=== PATIENT | male | born 2000 | race Caucasian/White ===

== ENCOUNTER 2023-01-18 02:36 | Emergency (ER) | payer OTHER, SELFPAY ==
[2023-01-18] VITALS (13 sets, daily range): BP systolic 102–165; BP diastolic 48–101; PULSE 72–143; RESP 10–23; TEMP 36.9; O2SAT 97–100
--- NOTE | 2023-01-18 02:59 | ECG_ITS ---
Measurements Intervals [place] Rate: 144 P: 66 MT: 135 QRS: 80 QRSD: 98 T: 21 QT: 289 QTc: 449 Interpretive Statements SINUS TACHYCARDIA, NONSPECIFIC ST & T-WAVE ABNORMALITY ABNORMAL RHYTHM ECG NO PREVIOUS ECG AVAILABLE FOR COMPARISON Electronically Signed On 01-19-2023 7:57:23 [employer] by Chi Moreira M.D.
[2023-01-18] MEDS: SODIUM CHLORIDE 0.9% IV 1,000 ML 999 ML IV CONT (03:11)
[2023-01-18] MEDS: LORazepam INJ (*CRX) 2 MG/ML VIAL 1 MG IV PUSH (03:16)
[2023-01-18 03:19] LABS: Basophils Percent Auto 0.4 % (0.2-1.2); Eosinophils Absolute Auto 0.1 K/mm3 (0-0.3); Eosinophils Percent Auto 1.4 % (0-4.4); Hematocrit 49.9 % (42.0-52.0); Hemoglobin 17.1 g/dL (14.0-18.0); Immature Granulocyte Absolute 0.02 K/mm3 (0.00-0.031); Immature Granulocyte Percent A 0.2 % (0-0.5); Lymphocytes Absolute Auto 2.53 K/mm3 (0.9-3.2); Mean Corpuscular HGB Conc 34.3 g/dl (32-36); Mean Corpuscular Hemoglobin 30.1 pg (26-34); Mean Corpuscular Volume 87.7 fl (80-100); Mean Platelet Volume 8.3 fl (7.4-10.4); Monocytes Absolute Auto 0.7 K/mm3 (0.1-0.6); Monocytes Percent Auto 7.5 % (2.6-8.5); Neutrophils Absolute Auto 5.6 K/mm3 (1.3-6.7); Neutrophils Percent Auto 62.5 % (45.5-73.1); Platelet Count Result 293 k/mm3 (150-375); Red Blood Count 5.69 M/mm3 (4.6-6.20); Red Cell Distribution Width 12.7 % (11.5-14.5)
[2023-01-18 03:29] LABS: Lactic Acid Reflex 0.6 mmol/L (0.7-2.0)
--- NOTE | 2023-01-18 03:32 | ED.GENADULT ---
HPI - General Adult General Chief complaint: Arrhythmia/Palpitations Stated complaint: eye irritation Time Seen by Provider: 01/18/23 02:47 History of Present Illness HPI narrative: Patient 22-year-old gentleman who presents the emergency department with chief complaint of feeling anxious. Patient reports that this evening he took a delta 8 gummy and also has had a recent ear infection that he is on antibiotics for. Patient states that he felt as though his heart was racing and felt somewhat weak. The patient denies chest pain denies shortness of breath. Related Data Allergies Allergy/AdvReac Type Severity Reaction Status Date / Time No Known Allergies Allergy Verified 01/18/23 03:07 Review of Systems Review of Systems: A 10 system review of systems was completed on the patient and is negative except for what is stated in the HPI. Nursing and ancillary documentation was reviewed. Exam Narrative: GENERAL: Well-appearing, well-nourished, and in no acute distress. HEAD: Normocephalic, atraumatic. EYES: PERRLA and EOMI. ENT: Nares clear, no rhinorrhea or epistaxis. Mucous membranes moist. NECK: Supple. CHEST: Clear to auscultation. No respiratory distress. HEART: Regular rate and rhythm. No murmur heard. Normal peripheral pulses. ABDOMEN: Soft, nontender, nondistended, normal active bowel sounds. EXTREMITIES: Normal range of motion. No edema. SKIN: Warm, dry, no rash. NEURO: No focal deficits. Alert and oriented x3. PSYCH: Normal mood and affect. Course Vital Signs Vital signs: Vital Signs Temperature 36.9 C 01/18/23 02:39 Pulse Rate 143 H 01/18/23 02:39 Respiratory Rate 22 H 01/18/23 02:39 Blood Pressure 165/101 H 01/18/23 02:39 Pulse Oximetry 100 01/18/23 02:39 Oxygen Delivery Room Air 01/18/23 02:39 Temperature 36.9 C 01/18/23 02:39 Pulse Rate 72 01/18/23 06:31 Respiratory Rate 12 01/18/23 06:31 Blood Pressure 113/60 01/18/23 06:31 Pulse Oximetry 100 01/18/23 06:31 Oxygen Delivery Room Air 01/18/23 02:39 Medical Decision Making MDM Narrative Medical decision making narrative: Differential diagnosis includes side effects of delta 8 THC, electrolyte abnormality dehydration, anxiety EKG is sinus tachycardia rate of [address] elevation or ST depression Patient received IV fluids and Ativan and heart rate has significantly improved. Patient laboratory studies were reviewed the patient had a normal lactic acid CBC was within normal limits as well. Vital Signs Vital Signs: Vital Signs Temperature 36.9 C 01/18/23 02:39 Pulse Rate 143 H 01/18/23 02:39 Respiratory Rate 22 H 01/18/23 02:39 Blood Pressure 165/101 H 01/18/23 02:39 Pulse Oximetry 100 01/18/23 02:39 Oxygen Delivery Room Air 01/18/23 02:39 Temperature 36.9 C 01/18/23 02:39 Pulse Rate 72 01/18/23 06:31 Respiratory Rate 12 01/18/23 06:31 Blood Pressure 113/60 01/18/23 06:31 Pulse Oximetry 100 01/18/23 06:31 Oxygen Delivery Room Air 01/18/23 02:39 Lab Data 01/18/23 03:11 01/18/23 03:11 Labs: Lab Results 01/18/23 01/18/23 01/18/23 Range/Units 03:11 03:11 04:08 WBC 9.0 (4.5-10.0) K/mm3 RBC 5.69 (4.6-6.20) M/mm3 Hgb 17.1 (14.0-18.0) g/dL Hct 49.9 (42.0-52.0) % MCV 87.7 (80-100) fl MCH 30.1 (26-34) pg MCHC 34.3 (32-36) g/dl RDW 12.7 (11.5-14.5) % Plt Count 293 (150-375) k/mm3 MPV 8.3 (7.4-10.4) fl Immature Gran % (Auto) 0.2 (0-0.5) % Neut % (Auto) 62.5 (45.5-73.1) % Lymph % (Auto) 28.0 (18.3-44.2) % [place] % (Auto) 7.5 (2.6-8.5) % Eos % (Auto) 1.4 (0-4.4) % Baso % (Auto) 0.4 (0.2-1.2) % Lymph # (Auto) 2.53 (0.9-3.2) K/mm3 [place] # (Auto) 0.7 H (0.1-0.6) K/mm3 Eos # (Auto) 0.1 (0-0.3) K/mm3 Baso # (Auto) 0.0 (0.0-0.1) K/mm3 Abs Immat Gran (auto) 0.02 (0.00-0.031) K/mm3 Absolute Neuts (auto) 5.6 (1.3-6.7) K/mm3 Abso
[2023-01-18 04:55] LABS: Alanine Aminotransferase 21 U/L (6-50); Albumin Level 3.8 g/dL (3.5-5.1); Alkaline Phosphatase 57 U/L (38-126); Anion Gap 1 mmol/L (8-16); Aspartate Amino Transferase 22 U/L (17-59); Bilirubin,Total 0.4 mg/dL (0.2-1.3); Blood Urea Nitrogen 13 mg/dL (9-20); Calcium 7.7 mg/dL (8.4-10.2); Carbon Dioxide 28 mmol/L (22-30); Chloride 107 mmol/L (98-107); Estimated CRCL calculation 113 ml/min; Estimated Glomerular Filt Rate > 60; Glucose 111 mg/dL (65-110); Magnesium 1.8 mg/dL (1.6-2.3); Potassium 3.5 mmol/L (3.4-5.0); Sodium 136 mmol/L (137-145)
== END 2023-01-18 07:08 | disposition home or self-care (01) ==
PROVIDERS: Emergency Provider Emergency Medicine; PCP Emergency Medicine
DX: R00.2 Palpitations (principal)
CPT/HCPCS: 36415; 80053; 83605; 83735; 85025; 93005; 96361; 96374; 99284; J2060; J7030